=== PATIENT | female | born 1945 | race Hispanic/Latino ===

== ENCOUNTER → 2019-01-07 | Day surgery (SDC) | payer MEDICARE, BC ==
[~2019-01-07] MED LIST: FENTANYL CITRATE/PF 100MCG/2 ML INJ ONE; MAGNESIUM PO; METOPROLOL SUCC50 MG PO; MIDAZOLAM HCL 2 MG/2 ML VIAL ONE; NAPROXEN250 MG PO; OR PHACO EYE KIT ONE; PREOP PHACO EYE KIT ONE; TACROLIMUS1 MG PO; VITAMIN D250000 UNIT PO; [UNRECOGNIZED DRUG - OTHER] PO
--- OUTSIDE RECORDS SUMMARY | 2019-01-07 07:10 | XMS REPORT | Clinical Summary ---
Author Author [facility] Organization [facility] Address Unknown Phone Unavailable Care Team Providers Care Damage Cutter Name Role Phone Nino Goldberg MD PCP Allergies No Known Allergies Medications End Date Status Medication Sig Dispensed Refills Start Date Active ursodiol (ACTIGALL) 300 Take 300 mg 0 mg capsule by mouth 2 (two) times a day. Active magnesium oxide (MAG-OX) Take 400 mg 0 400 mg tablet by mouth 2 (two) times a day. Active traMADol (ULTRAM) 50 mg Take 50 mg by 0 tablet mouth every 6 (six) hours as needed for moderate pain. 10/10/2020 Active tacrolimus (PROGRAF) 0.5 Take 1 120 capsule 0 MG capsule capsule (0.5 8 mg total) by mouth 2 (two) times a day. 09/03/2018 benzonatate (TESSALON) Take 1 0 100 MG capsule capsule (100 7 mg total) by mouth every 8 (eight) hours as needed for cough. 09/03/2018 ipratropium-albuterol Take 3 mL by 270 mL 0 (DUO-NEB) 0.5-2.5 mg/mL nebulization 7 nebulizer every 6 (six) hours while awake. 10/10/2018 metoprolol tartrate Take 1 tablet 60 tablet 2 (LOPRESSOR) 25 mg tablet (25 mg total) 8 by mouth 2 (two) times a day. 10/10/2018 ergocalciferol (VITAMIN Take 1 4 capsule 2 D2) 50,000 unit capsule capsule 8 (50,000 Units total) by mouth once a week. Take every Sunday. Active Problems Problem Noted Date Hypotension 09/05/2017 Rectal bleeding 09/05/2017 Overview: Added automatically from request for surgery [id number] Acute pyelonephritis 07/25/2017 Dyspnea on exertion 07/04/2017 Wrist pain, acute, left 07/04/2017 Overview: Added automatically from request for surgery [id number] Immunizations Name Dates Previously Given Next Due FLUCELVAX QUAD PF (0.5mL 06/14/2017 syringe) Family History Medical History Relation Name Comments COPD Neg Hx Diabetes Neg Hx Liver disease Neg Hx Social History Date Tobacco Use Types Packs/Day Years Used Never Smoker Smokeless Tobacco: Never Used Alcohol Use Drinks/Week oz/Week Comments No Sex Assigned at Date Recorded Not on file Industry Job Start Date Occupation Not on file Not on file Not on file Travel End Travel History Travel Start No recent travel history available. Last Filed Vital Signs Not on file Plan of Treatment Health Maintenance Due Date Last Done Comments BREAST CANCER SCREENING 1995 SHINGLES VACCINES (#1) 1995 65+ PNEUMOCOCCAL VACCINE 2010 (1 of 2 - PCV13) PNEUMOCOCCAL 2010 POLYSACCHARIDE VACCINE AGE 65 AND OVER INFLUENZA VACCINE 04/03/2019 06/14/2017 COLON CANCER SCREENING 07/27/2024 07/27/2014 Procedures Comments Procedure Name Priority Date/Time Associated Diagnosis TRANSFUSE RED BLOOD CELLS Routine 05/08/2018 5:47 PM CDT TRANSFUSE RED BLOOD CELLS Routine 05/08/2018 5:47 PM CDT after 01/06/2018 Results * Transfuse RBC (05/08/2018 5:47 PM CDT) Only the most recent of 2 results within the time period is included. after 01/06/2018 Insurance Payer Benefit Subscriber ID Type Phone Address Plan / Group MEDICARE MEDICARE xxxxxxxxxx Medicare [place], [place] PART A AND B BCBS BCBS xxxxxxxxxxxx Indemnity PAR/TRAD PLAN Advance Directives Patient has advance care planning documents on file. For more information, rob rubi contact: [facility] [address] [place] [address]
[2019-01-07 15:15] VITALS: BP 139/94
== END | disposition home or self-care (01) ==
LOC: OR 07:06
PROVIDERS: ATTEND Ophthalmology
DX: H25.12 Age-related nuclear cataract, left eye (principal); I10 Essential (primary) hypertension; Z94.4 Liver transplant status; Z86.19 Personal history of other infectious and parasitic diseases
CPT/HCPCS: 66984; J2250; V2632

== ENCOUNTER → 2019-01-21 | Day surgery (SDC) | payer MEDICARE, BC ==
[~2019-01-21] MED LIST changes: +HYDRALAZINE HCL 20 MG/ML VIAL ONE
--- OUTSIDE RECORDS SUMMARY | 2019-01-21 10:16 | XMS REPORT | Clinical Summary ---
Author Author [facility] Address Unknown Phone Unavailable Care Team Providers Care Driver Service Technician Name Role Phone Nino Goldberg MD PCP [...] Overview: Added automatically from request for surgery [id number] Acute pyelonephritis 07/25/2017 Dyspnea on exertion 07/04/2017 Wrist pain, acute, left 07/04/2017 Overview: Added automatically from request for surgery [id number] Immunizations Name Dates Previously Given Next Due [...] CELLS Routine 05/08/2018 5:47 PM CDT after 01/20/2018 Results * Transfuse RBC (05/08/2018 5:47 PM CDT) Only the most recent of 2 results within the time period is included. after 01/20/2018 Insurance Type Payer Benefit Subscriber ID Effective Phone Address Plan / Dates Group Medicare MEDICARE MEDICARE xxxxxxxxxx 2010- [place], PART A AND Present [place] B Indemnity BCBS BCBS xxxxxxxxxxxx 2017-P PAR/TRAD resent PLAN Advance Directives Patient has advance care planning documents on file. For more information, rob rubi contact: Vignesh Kirk [address] [place] [address]
[2019-01-21 13:45] VITALS: BP 113/58
== END | disposition home or self-care (01) ==
LOC: OR 10:06
PROVIDERS: ATTEND Ophthalmology
DX: H25.11 Age-related nuclear cataract, right eye (principal); I10 Essential (primary) hypertension; B19.10 Unspecified viral hepatitis B without hepatic coma; Z94.4 Liver transplant status
CPT/HCPCS: 66984; J0360; J2250; V2632

== ENCOUNTER → 2019-03-07 | Outpatient (CLI) | payer MEDICARE, BC ==
[~2019-03-07] MED LIST changes: -FENTANYL CITRATE/PF 100MCG/2 ML INJ ONE; -HYDRALAZINE HCL 20 MG/ML VIAL ONE; -MIDAZOLAM HCL 2 MG/2 ML VIAL ONE; -OR PHACO EYE KIT ONE; -PREOP PHACO EYE KIT ONE
--- NOTE | 2019-03-07 13:21 | Diagnostic Imaging Report ---
PROCEDURE:KNEE THREE VIEWS BILATERAL COMPARISON:None. INDICATIONS:BILATERAL KNEE PAIN FINDINGS: Right knee: No acute, displaced fracture or dislocation. Mild tricompartmental joint space narrowing with subchondral sclerosis. Medial and lateral meniscal calcifications. Trace nonspecific suprapatellar effusion. Left knee: No acute, displaced fracture or dislocation. Mild tricompartmental joint space narrowing and subchondral sclerosis, with medial and lateral meniscal calcification. No definite joint effusion. Quadriceps tendon enthesopathy on the superior patella. 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 Trace nonspecific right suprapatellar effusion. Dictated by: Morgan Watson M.D. on 03/07/2019 at 13:25 Electronically approved by: Morgan Watson M.D. on 03/07/2019 at 13:25
== END ==
LOC: RAD 12:29
PROVIDERS: ATTEND Family Medicine
DX: M25.562 Pain in left knee (principal); M25.561 Pain in right knee

== ENCOUNTER → 2020-09-07 | Outpatient (CLI) | payer OTHER ==
[~2020-09-07] MED LIST changes: +COVID-19 VACC, MRNA(MODERNA)/PF 100 MCG/0.5 ML VIAL IM ONE
== END | disposition home or self-care (01) ==
LOC: VACCPMC 18:30
DX: Z23 Encounter for immunization (principal); Z20.822 Contact with and (suspected) exposure to COVID-19

== ENCOUNTER → 2020-10-11 | Outpatient (CLI) | payer OTHER | END | DRG 951 | LOC: VACCPMC 10:52 | DX: Z23 Encounter for immunization (principal); Z20.822 Contact with and (suspected) exposure to COVID-19 | CPT/HCPCS: 0012A; 91301 ==

== ENCOUNTER → 2024-04-09 | Outpatient (REF) | payer MEDICARE, BC ==
[~2024-04-09] MED LIST changes: -COVID-19 VACC, MRNA(MODERNA)/PF 100 MCG/0.5 ML VIAL IM ONE
== END ==
LOC: RAD 13:41
PROVIDERS: ATTEND Family Medicine
DX: M25.532 Pain in left wrist (principal)